=== PATIENT | female | born 1970 | race Caucasian/White ===

== ENCOUNTER 2016-12-14 15:47 | Emergency (ER) | payer OTHER ==
[~2016-12-14 15:47] MED LIST: IMITREX50 MG PO; LEVAQUIN500 MG PO; LOPRESSOR 25 MG25 MG PO; PROTONIX40 MG PO
[2016-12-14 17:04] LABS: HEMOGLOBIN 13.5 gm/dl (12.3-15.3); RED BLOOD COUNT 4.33 M/UL (4.00-5.10); WHITE BLOOD COUNT 6.5 K/UL (4.5-11.0)
[2016-12-14 17:27] LABS: BUN/CREATININE RATIO 15 (0-10)
== END 2016-12-14 18:25 | disposition home or self-care (01) ==
LOC: ER1 15:47
PROVIDERS: Emergency Medicine
DX: J10.1 Influenza due to other identified influenza virus with other respiratory manifestations (principal); J44.9 Chronic obstructive pulmonary disease, unspecified; I25.2 Old myocardial infarction; Z88.0 Allergy status to penicillin; Z88.6 Allergy status to analgesic agent
CPT/HCPCS: 36415; 71020; 80053; 83605; 84484; 85025; 85379; 87040; 93005; 94664; 99284

== ENCOUNTER 2016-12-15 14:58 | Emergency (ER) | payer OTHER | END 2016-12-15 16:55 | disposition home or self-care (01) | LOC: ER1 14:58 | DX: R30.0 Dysuria (principal); R39.15 Urgency of urination; I25.2 Old myocardial infarction; J44.9 Chronic obstructive pulmonary disease, unspecified; F17.200 Nicotine dependence, unspecified, uncomplicated; Z88.0 Allergy status to penicillin; Z88.2 Allergy status to sulfonamides; Z88.6 Allergy status to analgesic agent | CPT/HCPCS: 36415; 81001; 87086; 99283 ==

== ENCOUNTER 2016-12-21 13:38 | Emergency (ER) | payer OTHER ==
[2016-12-21 19:51] LABS: HEMOGLOBIN 12.1 gm/dl (12.3-15.3); RED BLOOD COUNT 3.95 M/UL (4.00-5.10); WHITE BLOOD COUNT 9.7 K/UL (4.5-11.0)
[2016-12-21 20:09] LABS: BUN/CREATININE RATIO 16 (0-10)
== END 2016-12-22 00:20 | disposition home or self-care (01) ==
LOC: ER1 13:38
PROVIDERS: Physician Assistant
DX: R10.2 Pelvic and perineal pain (principal); R11.0 Nausea; R19.7 Diarrhea, unspecified; J44.9 Chronic obstructive pulmonary disease, unspecified; Z88.0 Allergy status to penicillin; Z88.2 Allergy status to sulfonamides
CPT/HCPCS: 36415; 80053; 81001; 83690; 84703; 85025; 87086; 87210; 96365; 96375; 99284; J0696; J1885; J2270; J2405; J2765; J7050

== ENCOUNTER 2016-12-28 19:17 | Emergency (ER) | payer OTHER | END 2016-12-28 21:05 | disposition home or self-care (01) | LOC: ER1 19:17 | DX: R10.2 Pelvic and perineal pain (principal); Z88.0 Allergy status to penicillin; Z88.2 Allergy status to sulfonamides; Z88.6 Allergy status to analgesic agent | CPT/HCPCS: 96372; 99284; J2270; J2550 ==

== ENCOUNTER 2016-12-29 18:09 | Emergency (ER) | payer OTHER | END 2016-12-29 20:26 | disposition home or self-care (01) | LOC: ER1 18:09 | DX: N30.11 Interstitial cystitis (chronic) with hematuria (principal); J44.9 Chronic obstructive pulmonary disease, unspecified; Z79.899 Other long term (current) drug therapy; Z88.0 Allergy status to penicillin; Z88.2 Allergy status to sulfonamides; Z88.6 Allergy status to analgesic agent | CPT/HCPCS: 96372; 99283; J2270 ==

== ENCOUNTER 2017-01-13 16:25 | Emergency (ER) | payer OTHER | END 2017-01-13 22:15 | disposition home or self-care (01) | LOC: ER1 16:25 | DX: N30.10 Interstitial cystitis (chronic) without hematuria (principal); F17.210 Nicotine dependence, cigarettes, uncomplicated; Z88.0 Allergy status to penicillin; Z88.2 Allergy status to sulfonamides | CPT/HCPCS: 96372; 99283; J1885; J2060 ==

== ENCOUNTER 2017-01-16 12:59 | Emergency (ER) | payer OTHER ==
[2017-01-16 16:35] LABS: HEMOGLOBIN 10.8 gm/dl (12.3-15.3); RED BLOOD COUNT 3.56 M/UL (4.00-5.10); WHITE BLOOD COUNT 7.1 K/UL (4.5-11.0)
[2017-01-16 16:53] LABS: BUN/CREATININE RATIO 12 (0-10)
== END 2017-01-16 19:05 | disposition home or self-care (01) ==
LOC: ER1 12:59
PROVIDERS: Student in an Organized Health Care Education/Training Program
DX: R30.0 Dysuria (principal); J44.9 Chronic obstructive pulmonary disease, unspecified; Z87.891 Personal history of nicotine dependence; Z88.0 Allergy status to penicillin; Z88.2 Allergy status to sulfonamides; Z87.440 Personal history of urinary (tract) infections
CPT/HCPCS: 80048; 81001; 84703; 85025; 87086; 96372; 99283; J1885; J2060

== ENCOUNTER 2017-01-20 12:49 | Emergency (ER) | payer OTHER | END 2017-01-20 13:30 | disposition home or self-care (01) | LOC: ER1 12:49 | DX: R10.30 Lower abdominal pain, unspecified (principal); G89.29 Other chronic pain; J44.9 Chronic obstructive pulmonary disease, unspecified; Z87.440 Personal history of urinary (tract) infections; Z88.0 Allergy status to penicillin; Z88.2 Allergy status to sulfonamides; Z88.6 Allergy status to analgesic agent; Z79.899 Other long term (current) drug therapy | CPT/HCPCS: 96374; 96375; 99282; J1885; J2060 ==

== ENCOUNTER 2017-01-21 20:00 | Emergency (ER) | payer OTHER ==
[2017-01-21 23:46] LABS: BUN/CREATININE RATIO 13 (0-10)
[2017-01-21 23:53] LABS: HEMOGLOBIN 11.1 gm/dl (12.3-15.3); RED BLOOD COUNT 3.57 M/UL (4.00-5.10); WHITE BLOOD COUNT 9.4 K/UL (4.5-11.0)
== END 2017-01-22 04:55 | disposition left against medical advice (07) ==
LOC: ER1 20:00
PROVIDERS: Specialist/Technologist Athletic Trainer
DX: N30.10 Interstitial cystitis (chronic) without hematuria (principal); Z88.0 Allergy status to penicillin; Z88.2 Allergy status to sulfonamides; Z88.6 Allergy status to analgesic agent
CPT/HCPCS: 36415; 80053; 81001; 83605; 83690; 85025; 87040; 87086; 96361; 96374; 96375; 99283; J1885; J2060; J7030

== ENCOUNTER 2017-01-22 20:49 | Emergency (ER) | payer OTHER | END 2017-01-23 01:12 | disposition home or self-care (01) | LOC: ER1 20:49 | DX: F41.8 Other specified anxiety disorders (principal); I25.10 Atherosclerotic heart disease of native coronary artery without angina pectoris; I25.2 Old myocardial infarction; J44.9 Chronic obstructive pulmonary disease, unspecified; Z88.0 Allergy status to penicillin; Z88.2 Allergy status to sulfonamides; Z88.6 Allergy status to analgesic agent; Z79.899 Other long term (current) drug therapy | CPT/HCPCS: 93005; 96374; 99283; J2060; J7030 ==

== ENCOUNTER 2017-01-24 19:58 | Emergency (ER) | payer OTHER | END 2017-01-24 23:40 | disposition home or self-care (01) | LOC: ER1 19:58 | DX: F41.9 Anxiety disorder, unspecified (principal); R07.9 Chest pain, unspecified | CPT/HCPCS: 36415; 93005; 99285 ==

== ENCOUNTER 2017-01-25 09:12 | Emergency (ER) | payer OTHER ==
[2017-01-25 10:36] LABS: HEMOGLOBIN 10.8 gm/dl (12.3-15.3); RED BLOOD COUNT 3.52 M/UL (4.00-5.10); WHITE BLOOD COUNT 7.9 K/UL (4.5-11.0)
[2017-01-25 10:49] LABS: BUN/CREATININE RATIO 18 (0-10)
== END 2017-01-25 12:13 | disposition home or self-care (01) ==
LOC: ER1 09:12
PROVIDERS: Physician Assistant
DX: G89.29 Other chronic pain (principal); R10.2 Pelvic and perineal pain; J44.9 Chronic obstructive pulmonary disease, unspecified; Z88.0 Allergy status to penicillin; Z88.2 Allergy status to sulfonamides; D64.9 Anemia, unspecified
CPT/HCPCS: 36415; 80053; 81001; 85025; 93005; 96374; 99282; J1885

== ENCOUNTER 2017-01-29 17:20 | Emergency (ER) | payer OTHER ==
[2017-01-29 19:42] LABS: BUN/CREATININE RATIO 14 (0-10)
[2017-01-29 19:51] LABS: HEMOGLOBIN 10.7 gm/dl (12.3-15.3); RED BLOOD COUNT 3.47 M/UL (4.00-5.10); WHITE BLOOD COUNT 8.5 K/UL (4.5-11.0)
== END 2017-01-30 00:08 | disposition home or self-care (01) ==
LOC: ER1 17:20
PROVIDERS: Physician Assistant
DX: F41.9 Anxiety disorder, unspecified (principal); N30.10 Interstitial cystitis (chronic) without hematuria; R07.9 Chest pain, unspecified; J44.9 Chronic obstructive pulmonary disease, unspecified; Z87.891 Personal history of nicotine dependence; Z88.0 Allergy status to penicillin; Z88.2 Allergy status to sulfonamides; Z79.82 Long term (current) use of aspirin; Z79.899 Other long term (current) drug therapy
CPT/HCPCS: 36415; 71010; 80053; 82550; 82553; 83874; 84439; 84443; 84484; 85025; 93005; 99285; J7030

== ENCOUNTER 2017-02-02 09:37 | Emergency (ER) | payer OTHER ==
[2017-02-02 11:57] LABS: HEMOGLOBIN 11.1 gm/dl (12.3-15.3); RED BLOOD COUNT 3.6 M/UL (4.00-5.10); WHITE BLOOD COUNT 5.7 K/UL (4.5-11.0)
[2017-02-02 12:18] LABS: BUN/CREATININE RATIO 11 (0-10)
== END 2017-02-02 13:50 | disposition home or self-care (01) ==
LOC: ER1 09:37
PROVIDERS: Emergency Medicine
DX: N39.0 Urinary tract infection, site not specified (principal); N30.10 Interstitial cystitis (chronic) without hematuria; Z88.0 Allergy status to penicillin; Z88.2 Allergy status to sulfonamides
CPT/HCPCS: 36415; 80053; 81001; 83605; 85025; 87040; 96361; 96374; 96375; 99283; J0696; J2270; J7050

== ENCOUNTER 2017-02-03 16:28 | Emergency (ER) | payer OTHER | END 2017-02-03 17:15 | disposition home or self-care (01) | LOC: ER1 16:28 | DX: N76.0 Acute vaginitis (principal) | CPT/HCPCS: 99283 ==

== ENCOUNTER → 2017-02-03 | Outpatient (CLI) | payer OTHER | LOC: US 10:45 | DX: N30.10 Interstitial cystitis (chronic) without hematuria (principal) | CPT/HCPCS: 74000 ==

== ENCOUNTER 2017-03-10 15:45 | Emergency (ER) | payer OTHER | END 2017-03-10 17:48 | disposition home or self-care (01) | LOC: ER1 15:45 | DX: G89.29 Other chronic pain (principal); R10.2 Pelvic and perineal pain; J44.9 Chronic obstructive pulmonary disease, unspecified; Z88.0 Allergy status to penicillin; Z88.6 Allergy status to analgesic agent; Z88.1 Allergy status to other antibiotic agents | CPT/HCPCS: 81001; 87086; 96372; 99284; J1885 ==

== ENCOUNTER 2017-03-19 12:44 | Emergency (ER) | payer OTHER ==
[2017-03-19 15:16] LABS: HEMOGLOBIN 13.1 gm/dl (12.3-15.3); RED BLOOD COUNT 4.24 M/UL (4.00-5.10); WHITE BLOOD COUNT 10.5 K/UL (4.5-11.0)
[2017-03-19 15:47] LABS: BUN/CREATININE RATIO 20 (0-10)
== END 2017-03-19 17:20 | disposition home or self-care (01) ==
LOC: ER1 12:44
PROVIDERS: Physician Assistant
DX: N30.00 Acute cystitis without hematuria (principal); R10.2 Pelvic and perineal pain; J44.9 Chronic obstructive pulmonary disease, unspecified; Z88.0 Allergy status to penicillin
CPT/HCPCS: 36415; 80053; 81001; 84703; 85025; 87086; 87210; 99283

== ENCOUNTER 2017-03-21 14:46 | Emergency (ER) | payer OTHER | END 2017-03-21 15:40 | disposition home or self-care (01) | LOC: ER1 14:46 | DX: G89.29 Other chronic pain (principal); R10.2 Pelvic and perineal pain; Z88.0 Allergy status to penicillin; Z85.41 Personal history of malignant neoplasm of cervix uteri | CPT/HCPCS: 99283 ==

== ENCOUNTER 2021-03-26 10:30 | Emergency (ER) | payer OTHER ==
[~2021-03-26 10:30] MED LIST changes: +ATIVAN1 MG PO; +AZITHROMYCIN500 MG PO; +COMBIVENT0.074 GM/I INH; +DIFLUCAN150 MG PO; +DIFLUCAN200 MG PO; +EXPECTORANT200 MG PO; +FLONASE 0.05% N16 GM; +MACROBID 100 M100 MG PO; +MEDROL4 MG PO; +NEURONTIN 100100 MG PO; +NORCO 5-325 TA1 EACH PO; +OMNICEF 300 MG300 MG PO; +OXYCODONE PO; +PYRIDIUM100 MG PO; +PYRIDIUM200 MG PO; +VIBRAMYCIN100 MG PO; +XYLOCAINE VISC100 ML EXT
[2021-03-26] MEDS ORDERED: IMITREX50 MG PO (13:19)
[2021-03-26] MEDS ORDERED: ONDANSETRON ODT4 MG SL (13:19)
== END 2021-03-26 14:42 | disposition home or self-care (01) ==
LOC: ER1 10:30
DX: R51.9 Headache, unspecified (principal); R30.0 Dysuria; J44.9 Chronic obstructive pulmonary disease, unspecified; Z90.710 Acquired absence of both cervix and uterus; Z88.0 Allergy status to penicillin; Z88.1 Allergy status to other antibiotic agents; Z88.8 Allergy status to other drugs, medicaments and biological substances; Z86.69 Personal history of other diseases of the nervous system and sense organs; Z85.528 Personal history of other malignant neoplasm of kidney; Z85.841 Personal history of malignant neoplasm of brain
CPT/HCPCS: 81001; 99283; J3030

== ENCOUNTER 2021-09-22 15:24 | Inpatient (IN) | payer OTHER ==
[~2021-09-22] VITALS: Ht 160 cm; Wt 56.0 kg
[~2021-09-22 15:24] MED LIST changes: +ONDANSETRON ODT4 MG SL
[2021-09-22 17:08] LABS: HEMOGLOBIN 11.4 gm/dl (12.3-15.3); RED BLOOD COUNT 3.62 M/UL (4.00-5.10); WHITE BLOOD COUNT 17.6 K/UL (4.5-11.0)
[2021-09-22 17:44] LABS: BUN/CREATININE RATIO 16 (0-10)
[2021-09-23 03:21] LABS: RED BLOOD COUNT 3.51 M/UL (4.00-5.10); WHITE BLOOD COUNT 15.2 K/UL (4.5-11.0)
[2021-09-23 04:17] LABS: BUN/CREATININE RATIO 9 (0-10)
[2021-09-23] MEDS ORDERED: KLONOPIN0.5 MG PO (09:03)
[2021-09-23] MEDS ORDERED: METHYLPREDNISOLO4 M1 PO (09:03)
[2021-09-23] MEDS ORDERED: OLANZAPINE5 MG PO (09:04)
[2021-09-23] MEDS ORDERED: PROAIR HFA8.5 GM INH (09:04)
[2021-09-23] MEDS ORDERED: EXCEDRIN EXTRA1 EACH PO (09:05)
[2021-09-23] MEDS ORDERED: ASPIRIN325 MG PO (09:05)
[2021-09-24 09:01] LABS: HEMOGLOBIN 11.3 gm/dl (12.3-15.3); RED BLOOD COUNT 3.66 M/UL (4.00-5.10); WHITE BLOOD COUNT 9.1 K/UL (4.5-11.0)
[2021-09-24 09:43] LABS: BUN/CREATININE RATIO 7 (0-10)
[2021-09-25 04:37] LABS: HEMOGLOBIN 11.8 gm/dl (12.3-15.3); RED BLOOD COUNT 3.78 M/UL (4.00-5.10); WHITE BLOOD COUNT 8.7 K/UL (4.5-11.0)
[2021-09-25 05:15] LABS: BUN/CREATININE RATIO 9 (0-10)
[2021-09-26 04:26] LABS: HEMOGLOBIN 12.1 gm/dl (12.3-15.3); RED BLOOD COUNT 3.89 M/UL (4.00-5.10); WHITE BLOOD COUNT 8.1 K/UL (4.5-11.0)
[2021-09-26 07:40] LABS: BUN/CREATININE RATIO 20 (0-10)
--- NOTE | 2021-09-26 11:20 | NUR ---
PATIENT NOTED TO HAVE A HEART RATE OF 120-140'S SUSTAINED IN AFIB. PROVIDER MADE AWARE. PATIENT IS IN NO DISTRESS. NO NEW ORDERS GIVEN.
[2021-09-27 06:08] LABS: BORDETELLA PARAPERTUSSIS Not Detected (Not Detectd); BORDETELLA PERTUSSIS Not Detected (Not Detectd); CHLAMYDIA PNEUMONIAE Not Detected (Not Detectd); CORONAVIRUS HKU1 Not Detected (Not Detectd); CORONAVIRUS NL63 Not Detected (Not Detectd); CORONAVIRUS OC43 Not Detected (Not Detectd); CORONOAVIRUS 229E Not Detected (Not Detectd); HUMAN METAPNEUMOVIRUS Not Detected (Not Detectd); HUMAN RHINOVIRUS/ENTEROVIRUS Not Detected (Not Detectd); INFLUENZA A Not Detected (Not Detectd); INFLUENZA B Not Detected (Not Detectd); MYCOPLASMA PNEUMONIAE Not Detected (Not Detectd); PARAINFLUENZA VIRUS 1 Not Detected (Not Detectd); PARAINFLUENZA VIRUS 2 Not Detected (Not Detectd); PARAINFLUENZA VIRUS 3 Not Detected (Not Detectd); PARAINFLUENZA VIRUS 4 Not Detected (Not Detectd); RESPIRATORY SYNCYTIAL VIRUS Not Detected (Not Detectd)
[2021-09-27 07:07] LABS: SARS-CoV-2 NOT DETECTED (Not Detectd)
[2021-09-27 10:39] LABS: HEMOGLOBIN 11.5 gm/dl (12.3-15.3); RED BLOOD COUNT 3.71 M/UL (4.00-5.10); WHITE BLOOD COUNT 8.2 K/UL (4.5-11.0)
[2021-09-27 11:38] LABS: BUN/CREATININE RATIO 19 (0-10)
[2021-09-28 03:47] LABS: RED BLOOD COUNT 3.63 M/UL (4.00-5.10)
[2021-09-28 04:20] LABS: BUN/CREATININE RATIO 12 (0-10)
[2021-09-30 09:10] LABS: HEMOGLOBIN 12.4 gm/dl (12.3-15.3); WHITE BLOOD COUNT 6.1 K/UL (4.5-11.0)
[2021-09-30 09:32] LABS: BUN/CREATININE RATIO 14 (0-10)
--- NOTE | 2021-10-01 03:29 | NUR ---
IN TO PATIENT ROOM AT THIS TIME, PATIENT COMPLAINED OF PAIN, IN TO ADMIN PAIN MEDICAITON. UPON ENTEREING , THERE ARE NO LINENS ON PATIENT MATTRESS. I ASKED PATIENT WHERE HER SHEETS WENT. PATIENT VOICES, MAN NEVER HAD ANY SHEETS ON MY BED SINCE I GOT HERE. I INFORMED PATIENT THAT SHE IN FACT HAS HAD LINENS ON HER BED, AND DID HAVE THEM ON THERE THE LAST ROUND THAT I MADE TO SEE HER AN HOUR PRIOR. AGAIN PATIENT DENIES EVER HAVING LINENS. BED LINENS NOTED IN FLOOR BESIDE BATHROOM DOOR. I ASKED PATIENT WHERE THOSE LINENES IN THE FLOOR CAME FROM AND SHE STATED "MY BED, I PUT THEM OVER THERE A FEW MINUTES AGO AFTER I THREW UP ON THEM." PATIENT UNREASONABLE, PMP MADE AWARE OF SITUATION
[2021-10-01 11:01] LABS: HEMOGLOBIN 12.3 gm/dl (12.3-15.3); RED BLOOD COUNT 3.94 M/UL (4.00-5.10); WHITE BLOOD COUNT 7.1 K/UL (4.5-11.0)
[2021-10-01 11:37] LABS: BUN/CREATININE RATIO 16 (0-10)
[2021-10-01] MEDS ORDERED: POLYETHYLENE GL17 GM PO (12:36)
[2021-10-01] MEDS ORDERED: DOCUSATE SODIU100 MG PO (12:36)
[2021-10-01] MEDS ORDERED: FERROUS GLUCON324 M1 PO (12:36)
[2021-10-01] MEDS ORDERED: ROXICODONE TAB 55 MG PO (12:36)
[2021-10-01] MEDS ORDERED: ADVAIR 100-501 EACH INH (12:55)
[2021-10-01] MEDS ORDERED: DOXYCYCLINE HY100 MG PO (13:01)
== END 2021-10-01 14:38 | disposition home or self-care (01) | DRG 917 ==
LOC: ER1 15:24 → PROG CARE 20:54 → CDU 20:54 → CCU 20:54 → PROG CARE 09-23 12:47 → MED SURG 4 09-25 17:39
PROVIDERS: Emergency Medicine; Internal Medicine; ADMIT Internal Medicine
DX: T39.091A Poisoning by salicylates, accidental (unintentional), initial encounter (principal); J18.9 Pneumonia, unspecified organism; J44.0 Chronic obstructive pulmonary disease with (acute) lower respiratory infection; I10 Essential (primary) hypertension; Z20.822 Contact with and (suspected) exposure to COVID-19; F41.1 Generalized anxiety disorder; E87.6 Hypokalemia; G43.909 Migraine, unspecified, not intractable, without status migrainosus; F20.9 Schizophrenia, unspecified; R00.0 Tachycardia, unspecified; K59.00 Constipation, unspecified; E86.0 Dehydration; G89.29 Other chronic pain; Z85.841 Personal history of malignant neoplasm of brain; Z79.82 Long term (current) use of aspirin; Z98.890 Other specified postprocedural states; Z88.0 Allergy status to penicillin; Z88.1 Allergy status to other antibiotic agents; Z88.8 Allergy status to other drugs, medicaments and biological substances; Z79.899 Other long term (current) drug therapy; Z87.891 Personal history of nicotine dependence; Z83.3 Family history of diabetes mellitus; Z88.2 Allergy status to sulfonamides; Z85.858 Personal history of malignant neoplasm of other endocrine glands; Z85.89 Personal history of malignant neoplasm of other organs and systems; F41.9 Anxiety disorder, unspecified
CPT/HCPCS: 36415; 71046; 80053; 80061; 80307; 82247; 82550; 82553; 82962; 83540; 83550; 83605; 83735; 83874; 83880; 84100; 84132; 84439; 84443; 84484; 84702; 85025; 85027; 85610; 87040; 87633; 93005; 94640; 94760; 99285; G0480; J1650; J2185; J2270; J2405; J2920; J7030; Q9967; U0002

== ENCOUNTER 2021-12-15 17:05 | Emergency (ER) | payer OTHER ==
[~2021-12-15 17:05] MED LIST changes: +ADVAIR 100-501 EACH INH; +ASPIRIN325 MG PO; +DOCUSATE SODIU100 MG PO; +DOXYCYCLINE HY100 MG PO; +EXCEDRIN EXTRA1 EACH PO; +FERROUS GLUCON324 M1 PO; +KLONOPIN0.5 MG PO; +METHYLPREDNISOLO4 M1 PO; +OLANZAPINE5 MG PO; +POLYETHYLENE GL17 GM PO; +PROAIR HFA8.5 GM INH; +ROXICODONE TAB 55 MG PO
[2021-12-15 18:44] LABS: HEMOGLOBIN 11.6 gm/dl (12.3-15.3); RED BLOOD COUNT 3.77 M/UL (4.00-5.10); WHITE BLOOD COUNT 6.5 K/UL (4.5-11.0)
[2021-12-15 19:02] LABS: BUN/CREATININE RATIO 9 (0-10)
== END 2021-12-15 22:10 | disposition left against medical advice (07) ==
LOC: ER1 17:05
DX: R06.00 Dyspnea, unspecified (principal); R30.0 Dysuria; Z20.822 Contact with and (suspected) exposure to COVID-19; R42 Dizziness and giddiness; Z88.0 Allergy status to penicillin; Z88.2 Allergy status to sulfonamides
CPT/HCPCS: 0240U; 71045; 80053; 82550; 82553; 83605; 84484; 85025; 93005; 99283

== ENCOUNTER 2022-02-04 13:26 | Emergency (ER) | payer OTHER ==
[2022-02-04] MEDS ORDERED: HYDROXYZINE HCL25 MG PO (16:05)
[2022-02-04] MEDS ORDERED: ATIVAN1 MG PO (16:22)
[2022-02-04] MEDS ORDERED: AZITHROMYCIN250 MG PO (16:28)
== END 2022-02-04 16:40 | disposition home or self-care (01) ==
LOC: ER1 13:26
DX: F41.9 Anxiety disorder, unspecified (principal); R05.9 Cough, unspecified
CPT/HCPCS: 99283

== ENCOUNTER 2022-03-16 21:51 | Emergency (ER) | payer OTHER ==
[~2022-03-16 21:51] MED LIST changes: +AZITHROMYCIN250 MG PO; +HYDROXYZINE HCL25 MG PO
== END 2022-03-17 00:48 | disposition left against medical advice (07) ==
LOC: ER1 21:51
DX: Z53.21 Procedure and treatment not carried out due to patient leaving prior to being seen by health care provider (principal)

== ENCOUNTER 2022-03-23 18:55 | Emergency (ER) | payer OTHER | END 2022-03-23 20:58 | disposition home or self-care (01) | LOC: ER1 18:55 | DX: R07.81 Pleurodynia (principal); Z76.5 Malingerer [conscious simulation] | CPT/HCPCS: 71045; 99283 ==